=== PATIENT | male | born 1995 | race Caucasian/White ===

== ENCOUNTER 2017-06-02 12:52 | Emergency (ER) | payer SELFPAY ==
[~2017-06-02] VITALS: Ht 180.3 cm; Wt 70.3 kg
[2017-06-02 12:53] VITALS: BP 147/88
== END 2017-06-02 13:20 | disposition home or self-care (01) ==
LOC: ED 13:00
DX: K08.89 Other specified disorders of teeth and supporting structures (principal)
CPT/HCPCS: 99283